=== PATIENT | male | born 1970 | race Caucasian/White ===

== ENCOUNTER 2017-03-12 11:12 | Day surgery (SDC) | payer OTHER ==
[2017-03-12] MEDS ORDERED: LACTATED RINGERS 1,000 ML IV ONE (11:40)
[2017-03-12] MEDS ORDERED: MIDAZOLAM 2 MG/2 ML VIAL IVP ONE (12:51)
[2017-03-12] MEDS ORDERED: fentaNYL 100 MCG/2 ML VIAL IVP ONE (12:51)
[2017-03-12 13:40] VITALS: BP 122/70
== END 2017-03-12 11:13 | disposition home or self-care (01) ==
LOC: SDS 11:12
PROVIDERS: ATTEND Surgery
PROC: 0DBM8ZX Excision of Descending Colon, Via Natural or Artificial Opening Endoscopic, Diagnostic (ICD-10-PCS; principal; 2017-03-12 12:15)
DX: Z12.11 Encounter for screening for malignant neoplasm of colon (principal); D12.4 Benign neoplasm of descending colon; Z80.0 Family history of malignant neoplasm of digestive organs; K64.8 Other hemorrhoids
CPT/HCPCS: 45380; J7120

== ENCOUNTER 2017-04-13 08:00 | Outpatient (CLI) | payer OTHER ==
[2017-04-13 10:35] LABS: BASOPHILS % (AUTO) 0.7 %; EOSINOPHILS # (AUTO) 0.3 10^3/uL (0.0-0.7); EOSINOPHILS % (AUTO) 4.9 %; HCT - HEMATOCRIT 43.1 % (42.0-52.0); HGB - HEMOGLOBIN 14.7 g/dL (14.0-18.0); LYMPHOCYTES # (AUTO) 1.8 10^3/uL (1.5-3.5); MEAN CORPUSCULAR HEMOGLOBIN 29.4 pg (27.0-31.0); MEAN CORPUSCULAR VOLUME 86.4 fL (80.0-94.0); MEAN PLATELET VOLUME 9.2 fL (7.4-11.4); MONOCYTES # (AUTO) 0.6 10^3/uL (0.0-1.0); NEUTROPHILS # (AUTO) 3.3 10^3/uL (1.5-6.6); NEUTROPHILS % (AUTO) 54.4 %; RED BLOOD COUNT 4.99 10^6/uL (4.70-6.10); RED CELL DISTRIBUTION WIDTH 13.3 % (12.0-15.0); UNCORRECTED WHITE BLOOD COUNT 6.1 x10^3/uL; WHITE BLOOD COUNT 6.1 x10^3/uL (4.8-10.8)
[2017-04-13 11:04] LABS: ALBUMIN/GLOBULIN RATIO 1.6 (1.0-2.2); CALCIUM 9.5 mg/dL (8.5-10.3); CREATININE 1.1 mg/dL (0.6-1.2); POTASSIUM 4.6 mmol/L (3.5-5.0); TOTAL PROTEIN 7.5 g/dL (6.7-8.2)
[2017-04-13 11:34] LABS: HEMOGLOBIN A1C 0.54 g/dL
== END 2017-04-13 08:01 | disposition home or self-care (01) ==
LOC: LAB.S 08:00
PROVIDERS: ATTEND Nurse Practitioner Family
DX: Z86.718 Personal history of other venous thrombosis and embolism (principal); R73.9 Hyperglycemia, unspecified; K76.0 Fatty (change of) liver, not elsewhere classified
CPT/HCPCS: 36415; 80053; 83036; 85025

== ENCOUNTER 2018-06-19 11:33 | Outpatient (CLI) | payer OTHER ==
--- NOTE | 2018-06-20 00:01 | XRAY Report ---
Reason: JUVENILE OSTEOCHONDROSIS OF TIBIA AND FIBULA,RIGHT Procedure Date: 06/19/2018 Accession Number: [id number] / [id number] Procedure: XR - Tib/Fib RT CPT Code: FULL RESULT: EXAM: RIGHT TIBIA/FIBULA RADIOGRAPHY EXAM DATE: 06/19/2018 12:34 PM. CLINICAL HISTORY: JUVENILE OSTEOCHONDROSIS OF TIBIA AND FIBULA,RIGHT. COMPARISON: None. TECHNIQUE: 2 views. FINDINGS: Bones: Cortical thickening along the dorsal margin of the mid/distal fibular diaphysis. Exostosis along the anterior tibial tubercle. No fracture. Joints: Normal alignment at the knee and ankle is visualized. Soft Tissues: Normal. No evident focal soft tissue swelling. IMPRESSION: Cortical thickening along the dorsal margin of the mid/distal fibular diaphysis, possibly sequela of remote injury, infection, or other insult. Please correlate with clinical history. [facility]
== END 2018-06-19 11:34 | disposition home or self-care (01) ==
LOC: DI 11:33
PROVIDERS: ATTEND Family Medicine
DX: M92.51 Juvenile osteochondrosis of proximal tibia (principal)